=== PATIENT | male | born 1965 | race Native Hawaiian/Other Pacific Islander ===

== ENCOUNTER 2017-11-13 07:41 | Day surgery (SDC) | payer BC ==
[2017-11-13 08:18] LABS: PLATELET COUNT 189 K/uL (142-355)
[2017-11-13 08:49] LABS: POTASSIUM 4.1 mmol/L (3.6-5.2)
== END 2017-11-13 11:07 | disposition home or self-care (01) ==
LOC: OR 07:41
PROVIDERS: Student in an Organized Health Care Education/Training Program
PROC: 0DBM8ZZ Excision of Descending Colon, Via Natural or Artificial Opening Endoscopic (ICD-10-PCS; principal; 2017-11-13)
PROC: 0DBL8ZZ Excision of Transverse Colon, Via Natural or Artificial Opening Endoscopic (ICD-10-PCS; 2017-11-13)
DX: D12.4 Benign neoplasm of descending colon (principal); D12.3 Benign neoplasm of transverse colon; Z12.11 Encounter for screening for malignant neoplasm of colon
CPT/HCPCS: 80053; 85027; J2001; J2250; J2704; J3010